=== PATIENT | male | born 1985 | race Two or more races ===

== ENCOUNTER 2025-05-13 12:34 | Inpatient (IN) | payer MEDICAID, OTHER ==
[~2025-05-13] VITALS: Ht 121.9 cm; Wt 72.0 kg
--- NOTE | 2025-05-13 13:02 | ECG ---
[facility] Test Date: 2025-05-13 Test Time: 12:53:55 Pat Name: ELIZABETH LLOYD Department: ER Room: 0216 Gender: M Sales Project Coordinator: SS : 1985 Requested By: LISA ÁLVAREZ Order Number: [id number] Reading MD: Marcelo Mccallum Measurements Intervals [place] Rate: 85 P: 39 IL: 137 QRS: -4 QRSD: 79 T: 6 QT: 382 QTc: 455 Interpretive Statements Sinus rhythm Abnormal R-wave progression, early transition LVH by voltage Electronically Signed On 05-19-2025 17:42:07 PDT by Marcelo Mccallum Please click the below link to view image of tracing.
--- NOTE | 2025-05-13 13:04 | ED.PDOC ---
GI ASSESSMENT HPI Comments 39-year-old male presents with a chief complaint of abdominal pain with associated rectal bleeding, nausea, and vomiting. Patient is Indonesian speaker only. Patient reports that his pain is localized to his periumbilical region, nonradiating, describes as sharp, and rates his pain a 8/10. Patient also reports that he has rectal bleeding and blood in his stool. Patient mentions that he drinks about 3 pints of vodka daily, last drink was this morning and also uses methamphetamine. PMHx: Denies PSHx: Denies HPI: Poor Historian. Past Medical History: Past Surgical History: REVIEW OF SYSTEMS: CONSTITUTIONAL: Denies acute: fever, diaphoresis, chills, HEAD: Denies acute: headache, photophobia Eyes: Denies acute: Double vision, vision loss, eye pain, eye discharge. EARS: Denies acute: tinnitus, hearing loss, ear discharge, ear pain, THROAT: Denies acute: sore throat, swelling, difficulty swallowing , pain with swallowing, change in voice. NECK: Denies acute: neck pain, neck swelling, stiff neck. HEART: Denies acute : chest pain, palpitations, LUNGS: Denies acute: SOB, wheezing, cough, hemoptysis ABDOMEN: Denies acute: diarrhea, melena , hematemesis, SKIN: Denies acute: rash, redness, lesions, itchiness. EXTREMITIES: Denies acute: calf pain, numbness, tingling, weakness, denies pain in extremity. Denies acute: Low back pain. Neuro: Denies acute: focal neurological deficit, motor or sensory focal neurological deficit, tremors, seizure like activity, confusion, dizziness, change in mental status, loss of bowel or bladder function, cauda equina like symptoms. : Denies acute: dysuria, hematuria, flank pain, increase in urinary frequency. PSYCH: Denies acute: hallucination, suicidal ideation, homicidal ideation. PHYSICAL EXAM: General: ----mild----acute distress, awake and alert. Head: normocephalic, atraumatic. Neck: supple, trachea is midline, no swelling. Throat: Normal phonation. Eyes:, no erythema, no purulent discharge, no proptosis, no icterus. Heart: regular rate, regular rhythm, no significant murmur appreciated. Lungs: no apparent respiratory distress, Able to speak in full sentences. No wheezing, no rhonchi, no crackles. No stridors Clear to auscultation bilaterally. Abdomen: Minimal nonspecific generalized tender to palpation, non distended, soft, no guarding, no rebound, + bowel sounds. Neuro: Awake, Alert, oriented to name, self, situation, follows commands GCS=15. Speech is normal. Skin: no petechia, no purpura, no cyanosis, non-pale, not jaundice. Lower extremities: --no - Pitting edema no deformity, no focal swelling, no calf TTP. Makes eye contact. moves all four extremities. Face: no apparent facial droop. y. Ambulating in the ED independently. ED COURSE: DISCLAIMER: This medical document was created using an electronic medical record system with voice recognition software and computerized dictation system. Although this document has been carefully reviewed, there might still be some phonetic and typographical errors. Occasional wrong-word or "sound-alike" substitutions may have occurred due to the inherent limitations of voice recognition software. These areas are purely typographical due to imperfections of the software programs and do not reflect any compromise in the patient's medical care. Please read the chart carefully and recognize, using context, where these substitutions have occurred. Chief Complaint: Withdrawal Time Seen by MD: 12:56 Reviewed Notes: Medications, Allergies Allergies: Coded Allergies: NO KNOWN ALLERGIES (Unverified , 05/13/25) Home Meds No Active Prescriptions or Reported Meds Information Source: Patient Past Medical History PAST MEDICAL HISTORY: Denies Surgical History: Denies all surgeries Family History Family History: Reviewed,noncontributory to illness Social History Smoker: Non-Smoker Alcohol: Heavy Drugs: Methamphetamine Lives In: Home Was a procedure done? Was a procedure done?: No GI differential Dx Differential Diagnosis: Other (DDX include but not limited to diverticulitis, colitis, gastroenteritis, acute abdomen, SBO, enteritis, constipation, volvulus, appendicitis, Gallbladder disease, choledocolithiasis, ascending cholangitis, pancreatitis, intraAbdominal mass/neoplasm, hepatitis, UTI, pylonephritis, kidney stone, aneurysm, dissection, Inflammatory bowel disease, gastroparesis, ischemic bowel. Diverticulitis, colitis, fistula, neoplasm, hemorrhoids, anal fissures, constipation, Crohn's disease, ulcerative colitis) X-Ray, Labs, Meds, VS Vital Signs Date Time Temp Pulse Resp B/P (MAP) Pulse Ox O2 Delivery O2 Flow Rate FiO2 05/13/25 14:23 98.3 84 16 150/80 (103) 96 98.3 05/13/25 13:35 74 19 95 Room Air* 0 21 05/13/25 13:32 98.0 90 16 148/76 (100) 96 98.0 05/13/25 13:32 90 16 98 Room Air 05/13/25 12:53 85 05/13/25 12:41 97.9 94 20 143/104 (117) 98 97.9 Lab Test 05/13/25 14:37 05/13/25 13:28 05/13/25 13:25 05/13/25 12:47 Range/Units Troponin I High Sensitivity 3 L < 3 L </=54 ng/L Urine Color Light-yellow Yellow Urine Clarity Clear Clear Urine pH 8.0 5.0-9.0 Urine Specific [place] 1.009 1.001-1.035 Urine Protein Negative Negative Urine Ketones Negative Negative Urine Blood Negative Negative /uL Urine Nitrite Negative Negative Urine Bilirubin Negative Negative Urine Urobilinogen Normal Negative mg/dL Urine Leukocyte Esterase Negative Negative /uL Urine RBC <1 0 - 3 /hpf Urine Microscopic WBC 0-3 /HPF Urine Squamous Epithelial Cells None seen <5 /hpf Urine Bacteria None seen None Seen /hpf Urine Glucose Trace Normal mg/dL Urine Opiates Screen Neg NEGATIVE Urine Fentanyl Screen Neg NEGATIVE Urine Barbiturates Screen Neg NEGATIVE Urine Phencyclidine Screen Neg NEGATIVE Urine Amphetamines Screen Neg NEGATIVE Urine Benzodiazepines Screen Neg NEGATIVE Urine Cocaine Screen Neg NEGATIVE Urine Cannabinoids Screen Neg NEGATIVE White Blood Count 3.3 L 4.4-10.8 10^3/uL Red Blood Count 4.85 4.5-5.90 10^6/uL Hemoglobin 15.2 13.5-17.5 g/dL Hematocrit 43.2 41.0-53.0 % Mean Corpuscular Volume 89.1 80.0-100.0 fL Mean Corpuscular Hemoglobin 31.4 28.0-32.0 pg Mean Corpuscular Hemoglobin Concent 35.2 32.0-36.0 g/dL Red Cell Distribution Width 12.3 11.8-14.3 % Platelet Count 168 140-450 10^3/uL Mean Platelet Volume 8.8 6.9-10.8 fL Neutrophils (%) (Auto) 51.5 37.0-80.0 % Lymphocytes (%) (Auto) 38.8 10.0-50.0 % Monocytes (%) (Auto) 7.4 0.0-12.0 % Eosinophils (%) (Auto) 0.8 0.0-7.0 % Basophils (%) (Auto) 1.5 0.0-2.0 % Neutrophils # (Auto) 1.7 1.6-8.6 10 ^3/uL Lymphocytes # (Auto) 1.3 0.4-5.4 10 ^3/uL Monocytes # (Auto) 0.2 0-1.3 10 ^3/uL Eosinophils # (Auto) 0 0-0.8 10 ^3/uL Basophils # (Auto) 0 0-0.2 10 ^3/uL Nucleated Red Blood Cells 0.0 % Prothrombin Time 11.5 9.3-11.8 sec Prothrombin Time INR 1.09 0.9-1.15 Activated Partial Thromboplast Time 29.6 24.5-34.5 SEC Sodium Level 137 136-145 mmol/L Potassium Level 3.9 3.5-5.1 mmol/L Chloride Level 101 98-107 mmol/L Carbon Dioxide Level 27 20-31 mmol/L Anion Gap 9 5-15 Blood Urea Nitrogen 7 L 9-23 mg/dL Creatinine 0.66 L 0.700-1.30 mg/dL Glomerular Filtration Rate Calc 121 >90 mL/min BUN/Creatinine Ratio 10.6 10.0-20.0 Serum Glucose 160 H 74-106 mg/dL Lactic Acid Level 1.8 0.4-2.0 mmol/L Calcium Level 9.6 8.7-10.4 mg/dL Magnesium Level 1.8 1.6-2.6 mg/dL Total Bilirubin 1.6 H 0.2-1.0 mg/dL Aspartate Amino Transferase (AST) 111 H 13-40 U/L Alanine Aminotransferase (ALT) 86 H 7-40 U/L Alkaline Phosphatase 162 H 46-116 U/L Total Protein 8.0 5.7-8.2 g/dL Albumin 4.6 3.2-4.8 g/dL Lipase 31 12-53 U/L Plasma/Serum Blood Alcohol 100.2 H <10 mg/dL POC Glucose 189 H 70-106 mg/dl Time of 1ST Reevaluation: 13:26 Reevaluation 1ST: Unchanged Patient Education/Counseling: Diagnosis, Treatment Family Education/Counseling: No Family Present Comments MDM: patient presented with the above HPI.-abdominal pain rectal bleed--workup was initiated. patient was found with the above mentioned diagnosis. the following medications were ordered: please refer to order lists of meds and tests obtained by myself Dr. Teixeira. Patient ED course and VS have been stabilized. Patient has been reassessed in the ED and remained in a stable condition. Pertinent incidental findings were discussed with the patient and/or family. Patient/family voices understanding and is agreeable with plan. Patient has been observed in the ED adequate length of time to insure improvement/stability. Escalation of care considered: Consideration of escalation to observation or admission Patient was given Thiamine, Protonix, Zofran, fluids Patient was ADMITTED to the medicine team for further evaluation and treatment of their presentation. All the reports of any imaging studies that were ordered by myself were reviewed by myself. Departure 1 Departure Time of Disposition: 13:25 Impression: Primary Impression: GI bleed Additional Impressions: Alcohol abuse Methamphetamine abuse Disposition: 09 ADMITTED INPATIENT Admit to: Tele Condition: Guarded e-Prescriptions No Active Prescriptions or Reported Meds Discharged With: Self Critical Care Note Critical Care Time?: Yes (45 min-critical care time only) I personally scribed for LISA TEIXEIRA DO ([email or web address]) on 05/13/25 at 13:04. Electro nically submitted by Solitario Tinajero ([email or web address]). LISA TEIXEIRA DO May 13, 2025 13:04
[2025-05-13] MEDS: PANTOPRAZOLE 40 MG/10 ML VIAL INJ IV ONE (13:31)
[2025-05-13] MEDS: SODIUM CHLORIDE 0.9% 1,000 ML IV ONE ×2 (13:31→18:38)
[2025-05-13] MEDS: ONDANSETRON HCL 4 MG/2 ML VIAL IV ONE (13:32)
[2025-05-13 13:35] VITALS: PULSE 74; RESP 19; O2SAT 95
[2025-05-13 13:49] LABS: Urine Protein, UAD Negative (Negative)
[2025-05-13 13:50] LABS: Hematocrit 43.2 % (41.0-53.0); Hemoglobin 15.2 g/dL (13.5-17.5); Mean Corpuscular Hemoglobin 31.4 pg (28.0-32.0); Mean Corpuscular Volume 89.1 fL (80.0-100.0); Nucleated Red Blood Cells % 0.0 %
[2025-05-13 13:59] LABS: Amphetamine Screen, Urine Neg (NEGATIVE); Barbiturate Scree,Urine Neg (NEGATIVE); Benzodiazephine Screen, Urine Neg (NEGATIVE); Cannabinoid Screen, Urine Neg (NEGATIVE); Cocaine Screen, Urine Neg (NEGATIVE); Opiate Scree,Urine Neg (NEGATIVE); Phencyclidine Screen, Urine Neg (NEGATIVE)
[2025-05-13 14:04] LABS: INR 1.09 (0.9-1.15); Partial Thromboplastin Time 29.6 SEC (24.5-34.5); Prothrombin Time 11.5 sec (9.3-11.8)
[2025-05-13 14:05] LABS: Anion Gap 9 (5-15); BUN/Creatinine Ratio 10.6 (10.0-20.0); Calcium 9.6 mg/dL (8.7-10.4); Carbon Dioxide 27 mmol/L (20-31); Chloride 101 mmol/L (98-107); Magnesium 1.8 mg/dL (1.6-2.6); Potassium 3.9 mmol/L (3.5-5.1); Sodium 137 mmol/L (136-145); Total Protein 8.0 g/dL (5.7-8.2)
[2025-05-13 14:06] LABS: Alanine Aminotransferase 86 U/L (7-40); Albumin 4.6 g/dL (3.2-4.8); Alkaline Phosphatase 162 U/L (46-116); Bilirubin, Total 1.6 mg/dL (0.2-1.0); Blood Urea Nitrogen 7 mg/dL (9-23); Glucose 160 mg/dL (74-106)
[2025-05-13 14:16] LABS: Lipase 31 U/L (12-53)
[2025-05-13] MEDS: THIAMINE HCL 100 MG TAB PO ONE (15:09)
[2025-05-13 17:23] VITALS: BP 140/87; PULSE 74; RESP 20; TEMP 98.3; O2SAT 95
[2025-05-13 17:33] VITALS: BP 140/87; PULSE 74; RESP 16; TEMP 98.3; O2SAT 95
--- NOTE | 2025-05-13 17:58 | DVHHP2 ---
History of Present Illness Reason for Visit: GI bleed History of Present Illness 39-year-old male presents for evaluation of GI bleed. Patient reports having three episodes of bloody bowel movements since today in the morning. Denies nausea or vomiting. No abdominal pain. Patient does have a history of liver cirrhosis secondary to alcohol abuse. Past Medical History Liver cirrhosis Past Surgical History Denies Family History Noncontributory Smoke: No ALCOHOL: heavy Drugs: None Lives: with Family Review of Systems Review of Systems Review of systems are currently negative otherwise addressed in HPI. Allergies: Coded Allergies: NO KNOWN ALLERGIES (Unverified , 05/13/25) Exam Vital Signs Vital Signs Date Time Temp Pulse Resp B/P (MAP) Pulse Ox O2 Delivery O2 Flow Rate FiO2 05/13/25 17:33 98.3 74 16 140/87 (104) 95 98.3 05/13/25 13:35 Room Air* 0 21 Exam Gen: 39-year-old male in mild distress Skin: Warm, dry, normal color and texture, no rash. HEENT: Normocephalic atraumatic, mucous membranes moist and pink. Neck: Cervical and supraclavicular nodes normal without enlargement, trachea is midline, thyroid gland is normal without masses. Pulmonary: Clear to auscultation and percussion bilaterally. Cardiac: Regular rate and rhythm. No murmur Abdomen: Soft, nontender, nondistended, bowel sounds present all 4 quadrants, no guarding, no rigidity, no organomegaly. Extremities: No cyanosis, clubbing, no edema Neuro: Cranial nerves II through XII grossly intact, normal affect and speech, no focal motor deficits. Labs/Xrays Labs Test 05/13/25 14:37 05/13/25 13:28 05/13/25 13:25 05/13/25 12:47 Range/Units Troponin I High Sensitivity 3 L </=54 ng/L Urine Color Light-yellow Yellow Urine Clarity Clear Clear Urine pH 8.0 5.0-9.0 Urine Specific [place] 1.009 1.001-1.035 Urine Protein Negative Negative Urine Ketones Negative Negative Urine Blood Negative Negative /uL Urine Nitrite Negative Negative Urine Bilirubin Negative Negative Urine Urobilinogen Normal Negative mg/dL Urine Leukocyte Esterase Negative Negative /uL Urine RBC <1 0 - 3 /hpf Urine Microscopic WBC 0-3 /HPF Urine Squamous Epithelial Cells None seen <5 /hpf Urine Bacteria None seen None Seen /hpf Urine Glucose Trace Normal mg/dL Urine Opiates Screen Neg NEGATIVE Urine Fentanyl Screen Neg NEGATIVE Urine Barbiturates Screen Neg NEGATIVE Urine Phencyclidine Screen Neg NEGATIVE Urine Amphetamines Screen Neg NEGATIVE Urine Benzodiazepines Screen Neg NEGATIVE Urine Cocaine Screen Neg NEGATIVE Urine Cannabinoids Screen Neg NEGATIVE White Blood Count 3.3 L 4.4-10.8 10^3/uL Red Blood Count 4.85 4.5-5.90 10^6/uL Hemoglobin 15.2 13.5-17.5 g/dL Hematocrit 43.2 41.0-53.0 % Mean Corpuscular Volume 89.1 80.0-100.0 fL Mean Corpuscular Hemoglobin 31.4 28.0-32.0 pg Mean Corpuscular Hemoglobin Concent 35.2 32.0-36.0 g/dL Red Cell Distribution Width 12.3 11.8-14.3 % Platelet Count 168 140-450 10^3/uL Mean Platelet Volume 8.8 6.9-10.8 fL Neutrophils (%) (Auto) 51.5 37.0-80.0 % Lymphocytes (%) (Auto) 38.8 10.0-50.0 % Monocytes (%) (Auto) 7.4 0.0-12.0 % Eosinophils (%) (Auto) 0.8 0.0-7.0 % Basophils (%) (Auto) 1.5 0.0-2.0 % Neutrophils # (Auto) 1.7 1.6-8.6 10 ^3/uL Lymphocytes # (Auto) 1.3 0.4-5.4 10 ^3/uL Monocytes # (Auto) 0.2 0-1.3 10 ^3/uL Eosinophils # (Auto) 0 0-0.8 10 ^3/uL Basophils # (Auto) 0 0-0.2 10 ^3/uL Nucleated Red Blood Cells 0.0 % Prothrombin Time 11.5 9.3-11.8 sec Prothrombin Time INR 1.09 0.9-1.15 Activated Partial Thromboplast Time 29.6 24.5-34.5 SEC Sodium Level 137 136-145 mmol/L Potassium Level 3.9 3.5-5.1 mmol/L Chloride Level 101 98-107 mmol/L Carbon Dioxide Level 27 20-31 mmol/L Anion Gap 9 5-15 Blood Urea Nitrogen 7 L 9-23 mg/dL Creatinine 0.66 L 0.700-1.30 mg/dL Glomerular Filtration Rate Calc 121 >90 mL/min BUN/Creatinine Ratio 10.6 10.0-20.0 Serum Glucose 160 H 74-106 mg/dL Lactic Acid Level 1.8 0.4-2.0 mmol/L Calcium Level 9.6 8.7-10.4 mg/dL Magnesium Level 1.8 1.6-2.6 mg/dL Total Bilirubin 1.6 H 0.2-1.0 mg/dL Aspartate Amino Transferase (AST) 111 H 13-40 U/L Alanine Aminotransferase (ALT) 86 H 7-40 U/L Alkaline Phosphatase 162 H 46-116 U/L Total Protein 8.0 5.7-8.2 g/dL Albumin 4.6 3.2-4.8 g/dL Lipase 31 12-53 U/L Plasma/Serum Blood Alcohol 100.2 H <10 mg/dL POC Glucose 189 H 70-106 mg/dl SEPSIS Sepsis Screen Date sepsis recognized/suspect: May 13, 2025 Time Sepsis recognized/suspect: 1240 Recent Procedure: No On Antibiotic Therapy: No Respiratory Rate >20: No Heart Rate >90: Yes Temp<36 C (96.8 F) or >38.3 C: No SBP <90 or MAP <65 mmHG: No New Acute Mental Status Change: No Is the patient on CPAP, BIPAP,: No Physician Orders Nitroglycerin Distributor (05/13/25 ) Ct Ab Pel Wo Con-No Oral Or Iv (05/13/25 12:59) Admit (05/13/25 15:20) Stool Occult Blood (05/13/25 17:53) * Gi Dvh Software Team Leader (05/13/25 17:53) NS (05/13/25 18:00) Pantoprazole (Protonix) (05/14/25 10:00) Ondansetron Hcl (Zofran) (05/13/25 18:00) Complete Blood Count (05/14/25 04:00) Comprehensive Metabolic Panel (05/14/25 04:00) Npo (Nothing By Mouth) Diet (05/13/25 Dinner) Condition: Stable (05/13/25 17:53) Bedrest With Bathroom Privileg (05/13/25 17:53) Vital Signs Date Time Temp Pulse Resp B/P (MAP) Pulse Ox O2 Delivery O2 Flow Rate FiO2 05/13/25 17:33 98.3 74 16 140/87 (104) 95 98.3 05/13/25 14:23 98.3 84 16 150/80 (103) 96 98.3 05/13/25 13:35 74 19 95 Room Air* 0 21 05/13/25 13:32 98.0 90 16 148/76 (100) 96 98.0 05/13/25 13:32 90 16 98 Room Air 05/13/25 12:53 85 05/13/25 12:41 97.9 94 20 143/104 (117) 98 97.9 Laboratory Tests Test 05/13/25 13:25 Lactic Acid Level 1.8 mmol/L (0.4-2.0) White Blood Count 3.3 10^3/uL (4.4-10.8) L Medications Medications Dose Ordered Sig/Kj Route Start Time Stop Time Status Last Admin Dose Admin Ondansetron HCl 8 mg ONCE ONCE IV 05/13/25 13:00 05/13/25 13:01 DC 05/13/25 13:32 8 MG Pantoprazole Sodium 40 mg ONCE ONCE IV 05/13/25 13:00 05/13/25 13:01 DC 05/13/25 13:31 40 MG Sodium Chloride 1,000 ml @ 1,000 mls/hr Q1H ONCE IV 05/13/25 13:00 05/13/25 13:59 DC 05/13/25 13:31 1,000 MLS/HR Thiamine HCl 100 mg ONCE ONCE PO 05/13/25 14:30 05/13/25 15:03 DC 05/13/25 15:09 100 MG Assessment/Plan Assessment/Plan Assessment ? GI bleed Liver cirrhosis Plan Admit the patient to [facility] to the hospitalist CT abdomen results pending GI consult NPO Maintenance IV fluids Continue treatment per orders. Plan discussed with: Patient My Orders Orders - RASHAAD TAPIA AGACNP Procedure Category Date Status Time Admit ADMIT 05/13/25 Transmitted 15:20 Stool Occult Blood LAB 05/13/25 Verified 17:53 * Gi Dvh Software Team Leader CONS 05/13/25 Verified 17:53 NS PHA 05/13/25 Verified 18:00 Pantoprazole PHA 05/14/25 Verified (Protonix) 10:00 Ondansetron Hcl PHA 05/13/25 Verified (Zofran) 18:00 Complete Blood Count LAB 05/14/25 Verified 04:00 Comprehensive LAB 05/14/25 Verified Metabolic Panel 04:00 Npo (Nothing By DIET 05/13/25 Verified Mouth) Diet Dinner Condition: Stable [place] 05/13/25 Verified 17:53 Bedrest With Bathroom [place] 05/13/25 Verified Privileg 17:53 Date of Service: May 13, 2025 Billing Provider: RASHAAD TPAIA Common Visit Codes: [id number] INP/OBS CARE (HIGH) RASHAAD TAPIA May 13, 2025 17:58
[2025-05-13] MEDS ORDERED: ONDANSETRON HCL 4 MG/2 ML VIAL IV PRN (18:00)
--- NOTE | 2025-05-13 19:41 | DVH ---
COMPUTERIZED TOMOGRAPHY ABDOMEN AND PELVIS WITHOUT CONTRAST REASON FOR EXAM: ETOH ABUSE, RECTAL BLEED, ABD PAIN, METH COMPARISON: None TECHNIQUE: Spiral scans were acquired from the diaphragm to the symphysis pubis without intravenous c ontrast administration. 2-D coronal and sagittal reformatted images were provided. Radiation optimiza tion: All CT scans at this facility use at least one of these dose optimization techniques: Automated exposure control mA and/or kV adjustment per patient size (includes targeted exams where dose is mat ched to clinical indication) or iterative reconstruction. RADIATION DOSE: CTDI: 10 mGy DLP: 568 mGy-cm FINDINGS: The visualized lung bases are clear. There is no pleural effusion. There is no pericardial effusion. The spleen is not enlarged. The liver is enlarged at approximately 18.3 cm in length. The liver is d iffusely hypoattenuating. Evaluation of the abdominal organs is suboptimal in the absence of intraven ous contrast. No calcified gallstone is identified. There is no pericholecystic edema. Unenhanced ap pearance of the pancreas is unremarkable. The adrenal glands are normal. The kidneys are similar in size. There is no hydronephrosis of either kidney. There is no renal, ureteral, or bladder calculus. The urinary bladder is unremarkable. The prostate and seminal vesicles are within normal limits. The re is no abdominal aortic aneurysm. There is no pathologic lymphadenopathy by size criteria. The yamilex endix is normal. There is no pathologic distention of the small bowel. There is no significant coloni c stool burden. No fluid is identified in the colon or the rectum. No acute osseous abnormality is id entified. There are degenerative changes in the lower lumbar spine. IMPRESSION: No fluid identified in the colon or rectum to suggest significant bleeding. There is no significant c olonic stool burden. Normal appendix Hypoattenuating, enlarged liver. This can be seen with steatosis or other diffuse hepatic process. C orrelate clinically and with liver function tests.
[2025-05-13 20:00] VITALS: PULSE 87; RESP 18; O2SAT 93
[2025-05-13 21:00] VITALS: BP 135/91; PULSE 81; RESP 18; TEMP 98.4; O2SAT 93
[2025-05-14] VITALS (8 sets, daily range): BP systolic 132–146; BP diastolic 90–98; PULSE 71–89; RESP 14–18; TEMP 97.7–99; O2SAT 95–98
[2025-05-14 06:46] LABS: Hematocrit 40.4 % (41.0-53.0); Hemoglobin 14.5 g/dL (13.5-17.5); Mean Corpuscular Hemoglobin 32.0 pg (28.0-32.0); Mean Corpuscular Volume 89.4 fL (80.0-100.0); Nucleated Red Blood Cells % 0.2 %
[2025-05-14 06:52] LABS: Alanine Aminotransferase 69 U/L (7-40); Albumin 4.0 g/dL (3.2-4.8); Alkaline Phosphatase 133 U/L (46-116); Anion Gap 9 (5-15); BUN/Creatinine Ratio 11.7 (10.0-20.0); Bilirubin, Total 2.3 mg/dL (0.2-1.0); Blood Urea Nitrogen 7 mg/dL (9-23); Calcium 8.8 mg/dL (8.7-10.4); Carbon Dioxide 25 mmol/L (20-31); Chloride 103 mmol/L (98-107); Glucose 118 mg/dL (74-106); Potassium 3.5 mmol/L (3.5-5.1); Sodium 137 mmol/L (136-145); Total Protein 7.2 g/dL (5.7-8.2)
[2025-05-14] MEDS: PANTOPRAZOLE 40 MG/10 ML VIAL INJ IV SCH (08:18)
[2025-05-14] MEDS: THIAMINE 100mg/ml INJ (200mg/2ml VIAL) IV ONE (10:28)
--- NOTE | 2025-05-14 10:45 | DVHPNRES ---
Progress Note Date Seen: May 14, 2025 Resident Creating Document: HUMBERTO ANSARI RESIDENT Has the PT tested + for MRSA If YES, has PT been informed?: No Medical Necessity Reason Pt with a Central, PICC or Fol: No Subjective Review of Systems This is a 39-year-old male with a history of liver cirrhosis (secondary to alcohol use) and methamphetamine abuse who presented with worsening abdominal pain with nausea and vomiting. Abdominal pain began 3 days ago and is worse today. He reports for more than 6 episodes of nonbloody vomiting since this morning, which produce the abdominal pain. He also has 3 episodes of bloody bowel movement today. The patient was diagnosis with liver cirrhosis 2 months ago presenting with rectal bleeding, black stool and difficulty urinating. Despite the diagnosis, he continued both alcohol and Methamphetamine use. Patient reports drinking vodka 5 shot daily for the past 20 years, with the last drink 2 days ago. His CIWA score is 30. He last used methamphetamine 2 days ago. He has reported living in a fdc after his left him due to his alcohol use. He expresses feeling of guilty and says he drinks upon waking. He endorses auditory hallucinations, hearing sound every night that cause head sweating. He appears disoriented to place and expresses paranoid thoughts, such as feeling that someone is following him, but no one is there. He says he feel scared and confused. Patient appears anxious and mild confused. Patient received Lorazepam for Alcohol withdrawal. Past Medical History Liver cirrhosis Past Surgical History Denies Family History Noncontributory Smoke: No ALCOHOL: heavy Drugs: Methamphetamine abuse Lives: jail Review of Systems Review of Systems Review of systems are currently negative otherwise addressed in HPI. Allergies: Coded Allergies: NO KNOWN ALLERGIES (Unverified , 05/13/25) Patient reports: No new complaints Objective vital signs Vital Sign Date Time Temp Pulse Resp B/P (MAP) Pulse Ox O2 Delivery O2 Flow Rate FiO2 05/14/25 09:00 99.0 78 18 140/97 (111) 97 99.0 05/14/25 07:39 Room Air* 0 21 Total Intake and Output 05/13/25 05/13/25 05/14/25 15:00 23:00 07:00 Intake Total 1000 ml 40 ml 960 ml Balance 1000 ml 40 ml 960 ml medications Current Medications Medications Dose Ordered Sig/Kj Route Start Time Stop Time Status Last Admin Dose Admin Pantoprazole Sodium 40 mg DAILY IV 05/14/25 10:00 05/14/25 08:18 40 MG Ondansetron HCl 4 mg Q4HP PRN IV 05/13/25 18:00 Folic Acid 1 mg/ Multivitamins 10 ml/Magnesium Sulfate 8 meq/ Thiamine HCl 100 mg/Dextrose 1,013.2 ml @ 125.001 mls/hr DAILY@1800 INJ 05/14/25 18:00 Folic Acid 1 mg DAILY PO 05/14/25 10:00 UNV Examination Exam Gen: 39-year-old male in mild distress Skin: Warm, dry, normal color and texture, no rash. HEENT: Normocephalic atraumatic, mucous membranes moist and pink. Neck: Cervical and supraclavicular nodes normal without enlargement, trachea is midline, thyroid gland is normal without masses. Pulmonary: Clear to auscultation and percussion bilaterally. Cardiac: Regular rate and rhythm. No murmur Abdomen: Right lower abdominal tenderness, rebound tenderness, Soft, nontender, nondistended, bowel sounds present all 4 quadrants, no guarding, no rigidity, no organomegaly. Extremities: Yes: Numbness in hands. No cyanosis, clubbing, no edema Neuro: Cranial nerves II through XII grossly intact, normal affect and speech, no focal motor deficits. laboratory and microbiology Laboratory Tests 05/14/25 05:18 Test 05/14/25 05:18 Range/Units Serum Glucose 118 H 74-106 mg/dL Labs and/or images reviewed: Labs reviewed by me, Image(s) reviewed by me Problem List/Assessment/Plan Problem List/Assessment/Plan # Alcohol withdrawal -continue Lorazepam (Ativan) 2mg q2h -continue Banana Bag (D5W + multivitamins, thiamine, folic acid) to prevent Wernicke's encephalopathy -continue Thiamine 100mg IV -continue Folic acid 1mg PO daily # GI bleed -continue Protonix 40 mg IV -continue Zofran 4mg IV q4h PRN -CT abdomen results pending -GI consult -NPO -Maintenance IV fluids -Continue treatment per orders # Liver cirrhosis - history of cirrhosis secondary to alcohol use -monitor for LFTs, INR. albumin and am[place] if AMS -CIWA score 30 point Plan discussed with: Patient, Other Sepsis reassessment post fluid Respiratory Effort: Non-Labored Respiratory Pattern: Regular (RN) Date of Service: May 14, 2025 Billing Provider: ALDA AVITIA MD Common Visit Codes: [id number] INP/OBS CARE(HIGH) HUMBERTO ANSARI RESIDENT May 14, 2025 10:45 ALDA AVITIA MD May 20, 2025 13:26
[2025-05-14] MEDS: LORazepam 2MG/ML-1ML VIAL IV SCH (13:50)
[2025-05-14] MEDS: FOLIC ACID 1 MG, MULTIPLE VITAMIN 10 ML, MAGNESIUM SULF SDV 50% 8 MEQ, THIAMINE INJ 100... INJ SCH (17:40)
--- NOTE | 2025-05-14 21:13 | DVHINCON2 ---
Date of service: May 14, 2025 Referring Physician Jose Manuel Loza Reason for Consultation Rectal bleeding History of Present Illness 39-year-old male presents for evaluation of GI bleed. Patient reports having three episodes of bloody bowel movements since today in the morning. Denies n ausea or vomiting. No abdominal pain. Patient does have a history of liver cirrhosis secondary to alcohol abuse. Patient was seen at bedside resting comfortably. Nurse reports a small smear of rectal bleeding today. Patient has been NPO but will be started on a clear liquid diet. There was no nausea vomiting no hematemesis. This is patient's 1st admission to this hospital. Patient's hemoglobin hematocrit is stable and stool for occult blood was negative. Patient had alcohol intoxication and admission and has moderate elevation in liver enzymes. Past Medical History Past Medical History Liver cirrhosis Past Surgical History Past Surgical History Denies Family History: Diabetes mellitus G8 MOTHER G8 FATHER Hypertension G8 FATHER Allergies: Coded Allergies: NO KNOWN ALLERGIES (Unverified , 05/13/25) Home Meds No Active Prescriptions or Reported Meds Current Medications Current Medications Medications (Trade) Dose Ordered Sig/Kj Route PRN Reason Start Time Stop Time Status Last Admin Pantoprazole Sodium (Protonix) 40 mg DAILY IV 05/14/25 10:00 05/14/25 08:18 Folic Acid 1 mg/ Multivitamins 10 ml/Magnesium Sulfate 8 meq/ Thiamine HCl 100 mg/Dextrose 1,013.2 ml @ 125.001 mls/hr DAILY@1800 INJ 05/14/25 18:00 05/14/25 17:40 Folic Acid 1 mg DAILY PO 05/15/25 10:00 Lorazepam (Ativan Inj) 1 mg Q2HR IV 05/14/25 12:00 05/14/25 16:07 Vital Signs Vital Signs Date Time Temp Pulse Resp B/P (MAP) Pulse Ox O2 Delivery O2 Flow Rate FiO2 05/14/25 17:00 98.4 81 18 133/96 (108) 96 98.4 05/14/25 07:39 Room Air* 0 21 Physical Exam Gen: 39-year-old male in no distress; sleeping comfortably at this time Skin: Warm, dry, normal color and texture, no rash. HEENT: Normocephalic atraumatic, mucous membranes moist and pink. Neck: Cervical and supraclavicular nodes normal without enlargement, trachea is midline, thyroid gland is normal without masses. Pulmonary: Clear to auscultation and percussion bilaterally. Cardiac: Regular rate and rhythm. No murmur Abdomen: Soft, nontender, nondistended, bowel sounds present all 4 quadrants, no guarding, no rigidity, no organomegaly. Extremities: No cyanosis, clubbing, no edema Neuro: Cranial nerves II through XII grossly intact, normal affect and speech, no focal motor deficits. Labs/Diagnostic Data Labs Test 05/14/25 05:18 05/13/25 18:30 05/13/25 14:37 05/13/25 13:28 Range/Units White Blood Count 4.6 # 4.4-10.8 10^3/uL Red Blood Count 4.52 4.5-5.90 10^6/uL Hemoglobin 14.5 13.5-17.5 g/dL Hematocrit 40.4 L 41.0-53.0 % Mean Corpuscular Volume 89.4 80.0-100.0 fL Mean Corpuscular Hemoglobin 32.0 28.0-32.0 pg Mean Corpuscular Hemoglobin Concent 35.8 32.0-36.0 g/dL Red Cell Distribution Width 12.4 11.8-14.3 % Platelet Count 131 L 140-450 10^3/uL Mean Platelet Volume 9.3 6.9-10.8 fL Neutrophils (%) (Auto) 53.7 37.0-80.0 % Lymphocytes (%) (Auto) 32.2 10.0-50.0 % Monocytes (%) (Auto) 8.1 0.0-12.0 % Eosinophils (%) (Auto) 4.8 0.0-7.0 % Basophils (%) (Auto) 1.2 0.0-2.0 % Neutrophils # (Auto) 2.5 1.6-8.6 10 ^3/uL Lymphocytes # (Auto) 1.5 0.4-5.4 10 ^3/uL Monocytes # (Auto) 0.4 0-1.3 10 ^3/uL Eosinophils # (Auto) 0.2 0-0.8 10 ^3/uL Basophils # (Auto) 0.1 0-0.2 10 ^3/uL Nucleated Red Blood Cells 0.2 % Sodium Level 137 136-145 mmol/L Potassium Level 3.5 3.5-5.1 mmol/L Chloride Level 103 98-107 mmol/L Carbon Dioxide Level 25 20-31 mmol/L Anion Gap 9 5-15 Blood Urea Nitrogen 7 L 9-23 mg/dL Creatinine 0.60 L 0.700-1.30 mg/dL Glomerular Filtration Rate Calc 124 >90 mL/min BUN/Creatinine Ratio 11.7 10.0-20.0 Serum Glucose 118 H 74-106 mg/dL Calcium Level 8.8 8.7-10.4 mg/dL Total Bilirubin 2.3 H 0.2-1.0 mg/dL Aspartate Amino Transferase (AST) 77 H 13-40 U/L Alanine Aminotransferase (ALT) 69 H 7-40 U/L Alkaline Phosphatase 133 H 46-116 U/L Total Protein 7.2 5.7-8.2 g/dL Albumin 4.0 3.2-4.8 g/dL Stool Occult Blood Negative Negative Stool Occult Blood Sample #3 Negative Troponin I High Sensitivity 3 L </=54 ng/L Urine Color Light-yellow Yellow Urine Clarity Clear Clear Urine pH 8.0 5.0-9.0 Urine Specific [place] 1.009 1.001-1.035 Urine Protein Negative Negative Urine Ketones Negative Negative Urine Blood Negative Negative /uL Urine Nitrite Negative Negative Urine Bilirubin Negative Negative Urine Urobilinogen Normal Negative mg/dL Urine Leukocyte Esterase Negative Negative /uL Urine RBC <1 0 - 3 /hpf Urine Microscopic WBC 0-3 /HPF Urine Squamous Epithelial Cells None seen <5 /hpf Urine Bacteria None seen None Seen /hpf Urine Glucose Trace Normal mg/dL Urine Opiates Screen Neg NEGATIVE Urine Fentanyl Screen Neg NEGATIVE Urine Barbiturates Screen Neg NEGATIVE Urine Phencyclidine Screen Neg NEGATIVE Urine Amphetamines Screen Neg NEGATIVE Urine Benzodiazepines Screen Neg NEGATIVE Urine Cocaine Screen Neg NEGATIVE Urine Cannabinoids Screen Neg NEGATIVE Test 05/13/25 13:25 05/13/25 12:47 Range/Units Prothrombin Time 11.5 9.3-11.8 sec Prothrombin Time INR 1.09 0.9-1.15 Activated Partial Thromboplast Time 29.6 24.5-34.5 SEC Lactic Acid Level 1.8 0.4-2.0 mmol/L Magnesium Level 1.8 1.6-2.6 mg/dL Lipase 31 12-53 U/L Plasma/Serum Blood Alcohol 100.2 H <10 mg/dL POC Glucose 189 H 70-106 mg/dl CT SCAN ABD PELVIS IMPRESSION: No fluid identified in the colon or rectum to suggest significant bleeding. There is no significant colonic stool burden. Normal appendix Hypoattenuating, enlarged liver. This can be seen with steatosis or other diffuse hepatic process. Correlate clinically and with liver function tests. Problems(with codes): (1) Alcoholic steatohepatitis (2) Elevated liver enzymes (3) Methamphetamine abuse (4) GI bleed (5) Alcohol abuse Plan/Recommendation Plan Continue to monitor the patient and his lab tests There was no evidence of active ongoing bleeding stool for occult blood is negative H&H is stable We will start the patient on a clear liquid diet Monitor for alcohol withdrawal and DTs Check repeat labs including ammonia level in a.m. His Maddrey discrimination function is low at 4.6 and patient does not need steroids his prognosis is good Patient can follow up with GI Services as an outpatient to discuss elective panendoscopy I will be standing by in case the patient shows signs of any active bleeding ; contact [facility] on-call over the weekend for any hemodynamic instability Plan discussed with: Patient, Other (Nurse John) DON BRAND MD May 14, 2025 21:13
[2025-05-15] VITALS (8 sets, daily range): BP systolic 122–146; BP diastolic 81–96; PULSE 76–93; RESP 16–18; TEMP 97.7–98.7; O2SAT 95–99
[2025-05-15 09:34] LABS: Albumin 4.4 g/dL (3.2-4.8); Anion Gap 13 (5-15); BUN/Creatinine Ratio 9.3 (10.0-20.0); Calcium 9.5 mg/dL (8.7-10.4); Carbon Dioxide 22 mmol/L (20-31); Chloride 101 mmol/L (98-107); Potassium 3.6 mmol/L (3.5-5.1); Sodium 136 mmol/L (136-145); Total Protein 7.7 g/dL (5.7-8.2)
[2025-05-15] MEDS: FOLIC ACID 1 MG TAB PO SCH (09:35)
[2025-05-15 09:40] LABS: Alanine Aminotransferase 79 U/L (7-40); Alkaline Phosphatase 130 U/L (46-116); Bilirubin, Total 1.5 mg/dL (0.2-1.0); Blood Urea Nitrogen 8 mg/dL (9-23); Glucose 232 mg/dL (74-106)
--- NOTE | 2025-05-15 11:54 | DVHPNRES ---
Progress Note Date Seen: May 15, 2025 Resident Creating Document: KARIME LUCAS RESIDENT Has the PT tested + for MRSA If YES, has PT been informed?: No Medical Necessity Reason Pt with a Central, PICC or Fol: No Subjective Review of Systems This is a 39-year-old male with a history of liver cirrhosis (secondary to alcohol use) and methamphetamine abuse who presented with worsening abdominal pain with nausea and vomiting. Abdominal pain began 3 days ago and is worse today. He reports for more than 6 episodes of nonbloody vomiting since this morning, which produce the abdominal pain. He also has 3 episodes of bloody bowel movement today. The patient was diagnosis with liver cirrhosis 2 months ago presenting with rectal bleeding, black stool and difficulty urinating. Despite the diagnosis, he continued both alcohol and Methamphetamine use. Patient reports drinking vodka 5 shot daily for the past 20 years, with the last drink 2 days ago. His CIWA score is 30. He last used methamphetamine 2 days ago. He has reported living in a fpc after his left him due to his alcohol use. He expresses feeling of guilty and says he drinks upon waking. He endorses auditory hallucinations, hearing sound every night that cause head sweating. He appears disoriented to place and expresses paranoid thoughts, such as feeling that someone is following him, but no one is there. He says he feel scared and confused. Patient appears anxious and mild confused. Patient received Lorazepam for Alcohol withdrawal. Patient seen at bedside. Patient appears alert x3, comfortable, patient complains of mild nausea, 6 times vomiting yesterday but denies any vomiting today, he had a bowel movement and says he saw blood. He feels anxious, is hearing voices at night and feels like something is going to attack him. He also complains of mild tingling sensation in his fingers. Patient denies any hematemesis, hemoptysis, night sweats, tremors, visual hallucinations, headaches. Today CIWA score is 8. Objective vital signs Vital Sign Date Time Temp Pulse Resp B/P (MAP) Pulse Ox O2 Delivery O2 Flow Rate FiO2 05/15/25 08:36 98.0 93 16 146/93 (110) 99 98.0 05/14/25 20:00 Room Air* 0 21 Total Intake and Output 05/14/25 05/14/25 05/15/25 15:00 23:00 07:00 Intake Total 1130 ml 200 ml Output Total 275 ml 400 ml Balance 855 ml -200 ml medications Current Medications Medications Dose Ordered Sig/Kj Route Start Time Stop Time Status Last Admin Dose Admin Pantoprazole Sodium 40 mg DAILY IV 05/14/25 10:00 05/15/25 09:35 40 MG Ondansetron HCl 4 mg Q4HP PRN IV 05/13/25 18:00 Folic Acid 1 mg/ Multivitamins 10 ml/Magnesium Sulfate 8 meq/ Thiamine HCl 100 mg/Dextrose 1,013.2 ml @ 125.001 mls/hr DAILY@1800 INJ 05/14/25 18:00 05/14/25 17:40 125.001 MLS/HR Folic Acid 1 mg DAILY PO 05/15/25 10:00 05/15/25 09:35 1 MG Lorazepam 1 mg Q2HR IV 05/14/25 12:00 05/15/25 09:42 1 MG Examination General: Patient alert and oriented in person, place and time. Patient following commands. HEENT: Normocephalic, atraumatic, moist mucous membranes Respiratory/pulmonary: Clear lungs bilaterally, vesicular murmurs present in almost all lung nassar, no associated crackles or wheezes. Cardiovascular: Normal heart sounds S1 and S2 with no associated murmurs Abdomen: Abdomen nondistended, mild pain to palpation in right upper quadrant, no palpable masses. Extremities: There is no peripheral edema present at the lower extremities. Peripheral Pulses: 3+ Radial (R). 3+ Radial (L). 3+ Dorsalis pedis (R). 3+ Dorsalis pedis(L) Skin: No rashes or pruritus, there is no sacral edema present at this time. Neurological: Intact cranial nerves with no focal neurologic deficits laboratory and microbiology Laboratory Tests 05/15/25 08:57 05/14/25 05:18 Test 05/15/25 08:57 Range/Units Serum Glucose 232 #H 74-106 mg/dL Problem List/Assessment/Plan Problem List/Assessment/Plan # Alcohol withdrawal - Blood alcohol level 100.2 -continue Lorazepam (Ativan) 2mg q2h -continue Banana Bag (D5W + multivitamins, thiamine, folic acid) to prevent Wernicke's encephalopathy -continue Thiamine 100mg IV -continue Folic acid 1mg PO daily - CIWA score is 8 - Ammonia Level- 46 - # GI bleed - continue Protonix 40 mg IV - continue Zofran 4mg IV q4h PRN - CT abdomen show No fluid identified in the colon or rectum to suggest significant bleeding. There is no significant colonic stool burden,Normal appendix, Hypoattenuating, enlarged liver. This can be seen with steatosis or other diffuse hepatic process. Correlate clinically and with liver function tests. - GI consult recomended that Patient can follow up with GI Services as an outpatient to discuss elective panendoscopy - started on clear liquid diet - Maintenance IV fluids - Continue treatment per orders - occult blood test Negative # Liver cirrhosis # Hyperbilirubinemia with Transaminitis - history of cirrhosis secondary to alcohol use -monitor for LFTs, INR. albumin and ammonia if AMS Goals of care discussed with the patient for: 27 minutes: Full code Case is discussed with Dr. Us Plan discussed with: Patient Sepsis reassessment post fluid Respiratory Effort: Non-Labored Respiratory Pattern: Regular (RN) Date of Service: May 15, 2025 Billing Provider: LOUISA US DO Common Visit Codes: [id number] INP/OBS CARE(HIGH) KARIME LUCAS RESIDENT May 15, 2025 11:54 LOUISA US DO May 17, 2025 09:45
[2025-05-15] MEDS ORDERED: LOPERAMIDE HCL 2 MG CAP/TAB PO PRN (19:00)
[2025-05-16] VITALS (8 sets, daily range): BP systolic 106–138; BP diastolic 75–97; PULSE 72–106; RESP 16–19; TEMP 97.3–98.3; O2SAT 96–99
[2025-05-16 06:22] LABS: Hematocrit 40.7 % (41.0-53.0); Hemoglobin 14.5 g/dL (13.5-17.5); Mean Corpuscular Hemoglobin 31.9 pg (28.0-32.0); Mean Corpuscular Volume 89.3 fL (80.0-100.0); Nucleated Red Blood Cells % 0.1 %
[2025-05-16 06:45] LABS: Alkaline Phosphatase 115 U/L (46-116); Anion Gap 11 (5-15); Calcium 9.4 mg/dL (8.7-10.4); Carbon Dioxide 25 mmol/L (20-31); Chloride 103 mmol/L (98-107); Sodium 139 mmol/L (136-145)
[2025-05-16 06:46] LABS: Albumin 4.2 g/dL (3.2-4.8); Bilirubin, Total 1.2 mg/dL (0.2-1.0); Glucose 111 mg/dL (74-106); Potassium 3.5 mmol/L (3.5-5.1); Total Protein 7.3 g/dL (5.7-8.2)
[2025-05-16 06:47] LABS: Alanine Aminotransferase 90 U/L (7-40); BUN/Creatinine Ratio 7.1 (10.0-20.0); Blood Urea Nitrogen < 5 mg/dL (9-23)
--- NOTE | 2025-05-16 10:21 | DVHPNRES ---
Progress Note Date Seen: May 16, 2025 Resident Creating Document: HUMEBRTO ANSARI RESIDENT Has the PT tested + for MRSA If YES, has PT been informed?: No Medical Necessity Reason Pt with a Central, PICC or Fol: No Subjective Review of Systems This is a 39-year-old male with a history of liver cirrhosis (secondary to alcohol use) and methamphetamine abuse who presented with worsening abdominal pain with nausea and vomiting. Abdominal pain began 3 days ago and is worse today. He reports for more than 6 episodes of nonbloody vomiting since this morning, which produce the abdominal pain. He also has 3 episodes of bloody bowel movement today. The patient was diagnosis with liver cirrhosis 2 months ago presenting with rectal bleeding, black stool and difficulty urinating. Despite the diagnosis, he continued both alcohol and Methamphetamine use. Patient reports drinking vodka 5 shot daily for the past 20 years, with the last drink 2 days ago. His CIWA score is 30. He last used methamphetamine 2 days ago. He has reported living in a skilled nursing after his left him due to his alcohol use. He expresses feeling of guilty and says he drinks upon waking. He endorses auditory hallucinations, hearing sound every night that cause head sweating. He appears disoriented to place and expresses paranoid thoughts, such as feeling that someone is following him, but no one is there. He says he feel scared and confused. Patient appears anxious and mild confused. Patient received Lorazepam and Librium for Alcohol withdrawal. Patient seen at bedside. Patient appears alert x3, comfortable, patient complains of mild nausea, 6 times vomiting yesterday but denies any vomiting today, he had a bowel movement and says he saw blood. He feels anxious, is hearing voices at night and feels like something is going to attack him. He also complains of mild tingling sensation in his fingers. Patient denies any hematemesis, hemoptysis, night sweats, tremors, visual hallucinations, headaches. Today CIWA score is 4. Review of Systems Constitutional: No: Fever, Chills, Sweats, Weakness, Malaise, Other Eyes: No: Pain, Vision change, Conjunctivae inflammation, Eyelid inflammation, Other, Redness ENT: No: Ear pain, Ear discharge, Nose pain, Nose discharge, Nose congestion, Mouth pain, Mouth swelling, Throat pain, Throat swelling, Other Respiratory: No: Cough, Dry, Shortness of breath, SOB with excertion, Wheezing, Hemoptysis, Pleuritic Pain, Sputum, Wheezing, Other Cardiovascular: No: Chest Pain, Palpitations, Orthopnea, Paroxysmal Noc. Dyspnea, Edema, Lt Headedness, Other Gastrointestinal: Abdominal pain; No: Nausea, Vomiting, Diarrhea, Constipation, Melena, Hematochezia, Other Genitourinary: No Dysuria, No Frequency, No Incontinence, No Hematuria, Retention; No Other Musculoskeletal: No: other, neck pain, shoulder pain, arm pain, back pain, hand pain, leg pain, foot pain Skin: No: Rash, Lesions, Jaundice, Bruising, Other Neurological: No: Weakness, Numbness, Incoordination, Change in speech, Confusion, Seizures, Other Allergies: Coded Allergies: NO KNOWN ALLERGIES (Unverified , 05/11/25) Patient reports: No new complaints (RN) Objective vital signs Vital Sign Date Time Temp Pulse Resp B/P (MAP) Pulse Ox O2 Delivery O2 Flow Rate FiO2 05/16/25 08:40 97.7 78 16 138/97 (111) 97 97.7 05/15/25 20:00 Room Air* 0 21 Total Intake and Output 05/15/25 05/15/25 05/16/25 15:00 23:00 07:00 Intake Total 1300 ml 1260 ml Output Total 1850 ml Balance 1300 ml -590 ml medications Current Medications Medications Dose Ordered Sig/Kj Route Start Time Stop Time Status Last Admin Dose Admin Pantoprazole Sodium 40 mg DAILY IV 05/14/25 10:00 05/15/25 09:35 40 MG Ondansetron HCl 4 mg Q4HP PRN IV 05/13/25 18:00 Folic Acid 1 mg/ Multivitamins 10 ml/Magnesium Sulfate 8 meq/ Thiamine HCl 100 mg/Dextrose 1,013.2 ml @ 125.001 mls/hr DAILY@1800 INJ 05/14/25 18:00 05/15/25 18:00 125.001 MLS/HR Folic Acid 1 mg DAILY PO 05/15/25 10:00 05/15/25 09:35 1 MG Lorazepam 1 mg Q2HR IV 05/14/25 12:00 05/15/25 21:05 1 MG Amlodipine Besylate 5 mg DAILY PO 05/16/25 10:00 Loperamide HCl 2 mg Q4HPRN PRN PO 05/15/25 19:00 Examination General: Patient alert and oriented in person, place and time. Patient following commands. HEENT: Normocephalic, atraumatic, moist mucous membranes Respiratory/pulmonary: Clear lungs bilaterally, vesicular murmurs present in almost all lung nassar, no associated crackles or wheezes. Cardiovascular: Normal heart sounds S1 and S2 with no associated murmurs Abdomen: Abdomen distended, mild pain to palpation in right upper quadrant, no palpable masses. Extremities: There is no peripheral edema present at the lower extremities. Peripheral Pulses: 3+ Radial (R). 3+ Radial (L). 3+ Dorsalis pedis (R). 3+ Dorsalis pedis(L) Skin: No rashes or pruritus, there is no sacral edema present at this time. Neurological: Intact cranial nerves with no focal neurologic deficits laboratory and microbiology Laboratory Tests 05/16/25 05:14 Test 05/16/25 05:14 Range/Units Serum Glucose 111 #H 74-106 mg/dL Labs and/or images reviewed: Labs reviewed by me, Image(s) reviewed by me (RN) Problem List/Assessment/Plan Problem List/Assessment/Plan # Alcohol withdrawal -continue Chlordiazepoixide HCL (Librium) 25 MG PO q8hprn -continue Lorazepam (Ativan) 2mg q2h -continue Banana Bag (D5W + multivitamins, thiamine, folic acid) to prevent Wernicke's encephalopathy -continue Thiamine 100mg IV -continue Folic acid 1mg PO daily # GI bleed -continue Protonix 40 mg IV -continue Zofran 4mg IV q4h PRN -CT abdomen- No fluid identified in the colon or rectum to suggest significant bleeding. There is no significant colonic stool burden. Normal appendix. Hypoattenuating, enlarged liver. This can be seen with steatosis or other diffuse hepatic process. Correlate clinically and with liver function tests. -GI consult -NPO > Clear liquid diet > Soft diet -Maintenance IV fluids -Continue treatment per orders # Liver cirrhosis -history of cirrhosis secondary to alcohol use -monitor for LFTs, INR. albumin and am[place] if AMS -CIWA score 30 point > 8 point > 4 point Goal of care discussed with the patient for more than 20 minutes full code Plan discussed with Dr. Us Plan discussed with: Patient, Other (RN) Sepsis reassessment post fluid Respiratory Effort: Non-Labored Respiratory Pattern: Regular (RN) Date of Service: May 16, 2025 Billing Provider: LOUISA US DO Common Visit Codes: [id number] INP/OBS CARE(HIGH) HUMBERTO ANSARI RESIDENT May 16, 2025 10:21 LOUISA US DO May 17, 2025 09:46
[2025-05-16] MEDS ORDERED: SODIUM CHLORIDE 0.9% 1,000 ML IV SCH (11:00)
[2025-05-16] MEDS: THIAMINE HCL 100 MG TAB PO ONE (18:35)
[2025-05-16] MEDS: MULTIPLE VITAMIN TAB PO ONE (18:35)
--- NOTE | 2025-05-16 23:49 | DVHPN2 ---
Progress Note - Dictate Date Seen: May 16, 2025 Has the PT tested + for MRSA If YES, has PT been informed?: No Medical Necessity Reason Pt with a Central, PICC or Fol: No Subjective No new complaints Rectal bleeding slowing down H/H stable Being treated for alcohol withdrawals vital signs Vital Sign Date Time Temp Pulse Resp B/P (MAP) Pulse Ox O2 Delivery O2 Flow Rate FiO2 05/16/25 20:46 98.2 96 18 106/81 (89) 96 98.2 05/16/25 20:00 Room Air* 0 21 Total Intake and Output 05/15/25 05/15/25 05/16/25 15:00 23:00 07:00 Intake Total 1300 ml 1260 ml Output Total 1850 ml Balance 1300 ml -590 ml medications Current Medications Medications Dose Ordered Sig/Kj Route Start Time Stop Time Status Last Admin Dose Admin Pantoprazole Sodium 40 mg DAILY IV 05/14/25 10:00 05/16/25 11:45 40 MG Ondansetron HCl 4 mg Q4HP PRN IV 05/13/25 18:00 Folic Acid 1 mg DAILY PO 05/15/25 10:00 05/16/25 11:45 1 MG Lorazepam 1 mg Q2HR IV 05/14/25 12:00 05/16/25 18:36 1 MG Amlodipine Besylate 5 mg DAILY PO 05/16/25 10:00 05/16/25 11:45 5 MG Loperamide HCl 2 mg Q4HPRN PRN PO 05/15/25 19:00 Chlordiazepoxide HCl 25 mg Q8HPRN PRN PO 05/16/25 11:15 05/16/25 21:17 25 MG Thiamine HCl 100 mg DAILY PO 05/17/25 10:00 Multivitamins 1 tab DAILY PO 05/17/25 10:00 objective Gen: 39-year-old male in no distress; sleeping comfortably at this time Skin: Warm, dry, normal color and texture, no rash. HEENT: Normocephalic atraumatic, mucous membranes moist and pink. Neck: Cervical and supraclavicular nodes normal without enlargement, trachea is midline, thyroid gland is normal without masses. Pulmonary: Clear to auscultation and percussion bilaterally. Cardiac: Regular rate and rhythm. No murmur Abdomen: Soft, nontender, nondistended, bowel sounds present all 4 quadrants, no guarding, no rigidity, no organomegaly. Extremities: No cyanosis, clubbing, no edema Neuro: Cranial nerves II through XII grossly intact, normal affect and speech, no focal motor deficits. laboratory and microbiology Laboratory Tests 05/16/25 05:14 Test 05/16/25 05:14 Range/Units Serum Glucose 111 #H 74-106 mg/dL Problems(with codes): (1) Methamphetamine abuse (2) GI bleed (3) Alcohol abuse (4) Alcoholic steatohepatitis (5) Elevated liver enzymes Prognosis Plan Continue to monitor the patient and his lab tests ; liver enzymes trending down There was no evidence of active ongoing bleeding stool for occult blood is negative H&H is stable Advance diet as tolerated Monitor for alcohol withdrawal and DTs Check repeat labs including ammonia level in a.m. His Maddrey discrimination function is low at 4.6 and patient does not need steroids his prognosis is good Patient can follow up with GI Services as an outpatient to discuss elective panendoscopy Dietary Evaluation Review Comments: 1) Encourage optimal PO intake 2) Advance to hepatic 2g Na 80g Pro diet when medically feasible 3) Follow-up with gastroenterology and hepatology 4) Follow-up with psychiatric social worker supervisor r/t polysubstance abuse 5) Continue to monitor I&O, labs, and skin integrity Expected Outcomes/Goals: 1) appetite and labs to improve 2) diet to advance 3) f/u in 3-5 days Plan discussed with: Other (None) Respiratory Effort: Non-Labored Respiratory Pattern: Regular (RN) DON BRAND MD May 16, 2025 23:49
[2025-05-17 01:02] VITALS: BP 120/81; PULSE 71; RESP 16; TEMP 98; O2SAT 97
[2025-05-17 05:00] VITALS: BP 120/81; PULSE 79; RESP 14; TEMP 98.2; O2SAT 100
[2025-05-17 05:39] LABS: Hematocrit 39.5 % (41.0-53.0); Hemoglobin 13.9 g/dL (13.5-17.5); Mean Corpuscular Hemoglobin 31.6 pg (28.0-32.0); Mean Corpuscular Volume 90.1 fL (80.0-100.0); Nucleated Red Blood Cells % 0.2 %
[2025-05-17 05:56] LABS: Alkaline Phosphatase 111 U/L (46-116); Calcium 9.6 mg/dL (8.7-10.4); Carbon Dioxide 25 mmol/L (20-31); Chloride 104 mmol/L (98-107)
[2025-05-17 05:57] LABS: Albumin 4.0 g/dL (3.2-4.8); Anion Gap 10 (5-15); BUN/Creatinine Ratio 11.0 (10.0-20.0); Bilirubin, Total 1.0 mg/dL (0.2-1.0); Potassium 3.6 mmol/L (3.5-5.1); Sodium 139 mmol/L (136-145); Total Protein 6.9 g/dL (5.7-8.2)
[2025-05-17 06:00] LABS: Alanine Aminotransferase 93 U/L (7-40); Blood Urea Nitrogen 8 mg/dL (9-23); Glucose 115 mg/dL (74-106)
[2025-05-17 08:48] VITALS: BP 127/56; PULSE 72; RESP 17; TEMP 97.8; O2SAT 96
[2025-05-17] MEDS: MULTIPLE VITAMIN TAB PO SCH (09:13)
[2025-05-17] MEDS: THIAMINE HCL 100 MG TAB PO SCH (09:13)
[2025-05-17] MEDS ORDERED: CHL25C PO (09:43)
[2025-05-17 13:20] VITALS: BP 126/83; PULSE 74; RESP 18; TEMP 97.2; O2SAT 98
--- NOTE | 2025-05-17 13:42 | DVHDSRES ---
Discharge Summary Date of Admission Resident Creating Document: HUMBERTO ANSARI RESIDENT May 13, 2025 at 15:20 Date of Discharge: May 17, 2025 Labs/Diagnostic Data: Laboratory Results Test 05/17/25 05:12 05/15/25 08:57 05/13/25 18:30 05/13/25 14:37 White Blood Count 3.9 10^3/uL (4.4-10.8) Red Blood Count 4.39 10^6/uL (4.5-5.90) Hemoglobin 13.9 g/dL (13.5-17.5) Hematocrit 39.5 % (41.0-53.0) Mean Corpuscular Volume 90.1 fL (80.0-100.0) Mean Corpuscular Hemoglobin 31.6 pg (28.0-32.0) Mean Corpuscular Hemoglobin Concent 35.1 g/dL (32.0-36.0) Red Cell Distribution Width 12.5 % (11.8-14.3) Platelet Count 110 10^3/uL (140-450) Mean Platelet Volume 9.3 fL (6.9-10.8) Neutrophils (%) (Auto) 41.4 % (37.0-80.0) Lymphocytes (%) (Auto) 38.8 % (10.0-50.0) Monocytes (%) (Auto) 10.9 % (0.0-12.0) Eosinophils (%) (Auto) 7.9 % (0.0-7.0) Basophils (%) (Auto) 1.0 % (0.0-2.0) Neutrophils # (Auto) 1.6 10 ^3/uL (1.6-8.6) Lymphocytes # (Auto) 1.5 10 ^3/uL (0.4-5.4) Monocytes # (Auto) 0.4 10 ^3/uL (0-1.3) Eosinophils # (Auto) 0.3 10 ^3/uL (0-0.8) Basophils # (Auto) 0 10 ^3/uL (0-0.2) Nucleated Red Blood Cells 0.2 % Sodium Level 139 mmol/L (136-145) Potassium Level 3.6 mmol/L (3.5-5.1) Chloride Level 104 mmol/L (98-107) Carbon Dioxide Level 25 mmol/L (20-31) Anion Gap 10 (5-15) Blood Urea Nitrogen 8 mg/dL (9-23) Creatinine 0.73 mg/dL (0.700-1.30) Glomerular Filtration Rate Calc 117 mL/min (>90) BUN/Creatinine Ratio 11.0 (10.0-20.0) Serum Glucose 115 mg/dL (74-106) Calcium Level 9.6 mg/dL (8.7-10.4) Total Bilirubin 1.0 mg/dL (0.2-1.0) Aspartate Amino Transferase (AST) 88 U/L (13-40) Alanine Aminotransferase (ALT) 93 U/L (7-40) Alkaline Phosphatase 111 U/L (46-116) Total Protein 6.9 g/dL (5.7-8.2) Albumin 4.0 g/dL (3.2-4.8) Ammonia 46 umol/L (11-32) Stool Occult Blood Negative (Negative) Stool Occult Blood Sample #3 (Negative) Troponin I High Sensitivity 3 ng/L (</=54) Test 05/13/25 13:28 05/13/25 13:25 05/13/25 12:47 Urine Color Light-yellow (Yellow) Urine Clarity Clear (Clear) Urine pH 8.0 (5.0-9.0) Urine Specific [place] 1.009 (1.001-1.035) Urine Protein Negative (Negative) Urine Ketones Negative (Negative) Urine Blood Negative /uL (Negative) Urine Nitrite Negative (Negative) Urine Bilirubin Negative (Negative) Urine Urobilinogen Normal mg/dL (Negative) Urine Leukocyte Esterase Negative /uL (Negative) Urine RBC <1 /hpf (0 - 3) Urine Microscopic WBC /HPF (0-3) Urine Squamous Epithelial Cells None seen /hpf (<5) Urine Bacteria None seen /hpf (None Seen) Urine Glucose Trace mg/dL (Normal) Urine Opiates Screen Neg (NEGATIVE) Urine Fentanyl Screen Neg (NEGATIVE) Urine Barbiturates Screen Neg (NEGATIVE) Urine Phencyclidine Screen Neg (NEGATIVE) Urine Amphetamines Screen Neg (NEGATIVE) Urine Benzodiazepines Screen Neg (NEGATIVE) Urine Cocaine Screen Neg (NEGATIVE) Urine Cannabinoids Screen Neg (NEGATIVE) Prothrombin Time 11.5 sec (9.3-11.8) Prothrombin Time INR 1.09 (0.9-1.15) Activated Partial Thromboplast Time 29.6 SEC (24.5-34.5) Lactic Acid Level 1.8 mmol/L (0.4-2.0) Magnesium Level 1.8 mg/dL (1.6-2.6) Lipase 31 U/L (12-53) Plasma/Serum Blood Alcohol 100.2 mg/dL (<10) POC Glucose 189 mg/dl (70-106) Other Laboratory Tests 05/17/25 05:12 Brief Hx & Hospital Course: HISTORY OF PRESENT ILLNESS: This is a 39-year-old male with a history of liver cirrhosis (secondary to alcohol use) and methamphetamine abuse who presented with worsening abdominal pain with nausea and vomiting. Abdominal pain began 3 days ago and is worse today. He reports for more than 6 episodes of nonbloody vomiting since this morning, which produce the abdominal pain. He also has 3 episodes of bloody bowel movement today. The patient was diagnosis with liver cirrhosis 2 months ago presenting with rectal bleeding, black stool and difficulty urinating. Despite the diagnosis, he continued both alcohol and Methamphetamine use. Patient reports drinking vodka 5 shot daily for the past 20 years, with the last drink 2 days ago. His CIWA score is 30. He last used methamphetamine 2 days ago. He has reported living in a longterm after his left him due to his alcohol use. He expresses feeling of guilty and says he drinks upon waking. He endorses auditory hallucinations, hearing sound every night that cause head sweating. He appears disoriented to place and expresses paranoid thoughts, such as feeling that someone is following him, but no one is there. He says he feel scared and confused. Patient appears anxious and mild confused. Patient received Lorazepam for Alcohol withdrawal HOSPITAL COURSE: The patient was admitted at the line of alcohol withdrawal, patient was given lorazepam 1 mg p.r.n. q.2 hours, thiamine, multivitamin, folic acid, Protonix and ondansetron. Due to high blood pressure, the patient was given amlodipine. The patient's clinical status gradually improved, and lorazepam PRN was shifted to chlordiazepoxide 20 mg q.6 hours p.o.. On 05/14/2025, the patient was feeling better since admission, CIWA score was 2. Discharge plan discussed with the patient and the patient discharged home. DISCHARGE PLAN: Follow up with the PCP within 1 week of the discharge. Follow up with the discharge Clinic within 1 week of discharge Follow up with the GI on outpatient basis Restless were provided for the patient's placement Patient was consulted for alcohol cessation DISCHARGE DIAGNOSIS: Alcohol withdrawal, CIWA score 30 Alcohol use disorder Amphetamine use disorder Morbid obesity ? Liver cirrhosis, likely due to alcohol use disorder Transaminitis, likely due to above Alcoholic steatohepatitis ? GI bleeding, unspecified location Condition at Discharge: Good Final Diagnosis/Problems List Alcohol withdrawal Discharge Disposition: Home Discharge Instruct/Medications Diet: Regular Activity: No Restrictions, As Tolerated Follow Up/Referral: Follow with the PCP within 1 week after discharge. Follow up with GI on outpatient basis Scheduled Chlordiazepoxide Hcl (Librium), 25 MG PO UD Scheduled PRN Hydrocortisone (Topical) (Preparation H), 1 % EX BID PRN Discharge Statement: "Patient was advised to return to the ER or call 911 if any headaches, dizziness, shortness of breath, chest pain, abdominal pain, bleeding, fevers, or worsening of medical condition. Patient was counseled about treatment plan, medications, possible side effects, patientverbalized understanding. All questions were answered to the best of my ability. This discharge took greater then 30 minutes in planning, reviewing documentation, counseling the patient, and discussing with other team members." ASSESSMENT ASSESSMENT Assessment Alcohol withdrawal Date of Service: May 17, 2025 Billing Provider: ALDA AVITIA MD Common Visit Codes: 56601-COD/OBS DISCH DAY >30min ZULY MATTHEW RESDIENT May 17, 2025 13:42 ALDA AVITIA MD May 20, 2025 13:37
[2025-05-17 16:49] VITALS: BP 114/80; PULSE 79; RESP 19; TEMP 98.2; O2SAT 97
== END 2025-05-17 17:49 | disposition home or self-care (01) | DRG 242 ==
LOC: ER 12:34 → OVERFLOW 15:20 → CENTRAL 17:22
PROVIDERS: ADMIT Student in an Organized Health Care Education/Training Program; ATTEND Student in an Organized Health Care Education/Training Program
DX: K22.6 Gastro-esophageal laceration-hemorrhage syndrome (principal); E72.20 Disorder of urea cycle metabolism, unspecified; K70.30 Alcoholic cirrhosis of liver without ascites; E66.01 Morbid (severe) obesity due to excess calories; E80.6 Other disorders of bilirubin metabolism; F10.139 Alcohol abuse with withdrawal, unspecified; F15.10 Other stimulant abuse, uncomplicated; R74.01 Elevation of levels of liver transaminase levels; F10.129 Alcohol abuse with intoxication, unspecified; Z79.899 Other long term (current) drug therapy; Z68.42 Body mass index [BMI] 45.0-49.9, adult; Z82.49 Family history of ischemic heart disease and other diseases of the circulatory system; Z83.3 Family history of diabetes mellitus; Y90.5 Blood alcohol level of 100-119 mg/100 ml
CPT/HCPCS: 36415; 74176; 80053; 80307; 80320; 81001; 82140; 82270; 82962; 83605; 83690; 83735; 84484; 85025; 85610; 85730; 86850; 86900; 86901; 93005; 96374; 96375; G0378; J2405; J2470

== ENCOUNTER 2025-05-18 22:14 | Emergency (ER) | payer MEDICAID ==
[~2025-05-18] VITALS: Ht 152.4 cm; Wt 68.0 kg
[2025-05-18 22:14] VITALS: BP 140/97; PULSE 78; RESP 18; TEMP 97.5; O2SAT 97
[~2025-05-18 22:14] MED LIST: CHL25C PO
[2025-05-19] MEDS ORDERED: HYDR-5192 EX (01:27)
--- NOTE | 2025-05-19 01:27 | ED.PDOC ---
General HPI Comments Patient complaining of rectal pain pain in his scrotum. States he was seen yesterday, sent home after being discharged with alcohol withdrawals and bloody diarrhea. States when he wipes his rectum is very tender. States no blood in his stool today. Only blood with wiping. Does not remember the name/medication that the nurse applied prior to his discharge. Chief Complaint: Rectal Pain Time Seen by MD: 22:33 Primary Care Provider: NONE Reviewed notes: Nurses Notes Allergies: Coded Allergies: NO KNOWN ALLERGIES (Unverified , 05/13/25) Home Meds Active Scripts Chlordiazepoxide Hcl (Librium) 25 Mg Cp, 25 MG PO UD for 2 Days, #3 CAP take 1 tablet twice daily for 1 day, followed by 1 tablet daily for 1 day Prov:ALDA AVITIA MD 05/17/25 Information Source: Patient Mode of Arrival: Ambulatory Severity: Mild Past Medical History PAST MEDICAL HISTORY: Denies Surgical History: Denies all surgeries Family History Family History: Reviewed,noncontributory to illness Social History Smoker: Non-Smoker Alcohol: Heavy Drugs: Methamphetamine Lives In: Home Constitutional: denies: chills, diaphoresis, fatigue, fever, malaise, sweats, weakness, others EENTM: denies: blurred vision, double vision, ear bleeding, ear discharge, ear drainage, ear pain, ear ringing, eye pain, eye redness, hearing loss, mouth pain, mouth swelling, nasal discharge, nose bleeding, nose congestion, nose pain, photophobia, tearing, throat pain, throat swelling, voice changes, others Respiratory: denies: cough, hemoptysis, orthopnea, SOB at rest, shortness of breath, SOB with excertion, stridor, wheezing, others Cardiovascular: denies: chest pain, dizzy spells, diaphoresis, Dyspnea on exertion, edema, irregular heart beat, left arm pain, lightheadedness, palpitations, PND, syncope, others Gastrointestinal: denies: abdomen distended, abdominal pain, blood streaked bowels, constipated, diarrhea, dysphagia, difficulty swallowing, hematemesis, melena, nausea, poor appetite, poor fluid intake, rectal bleeding, rectal pain, vomiting, others Genitourinary: denies: burning, dysuria, flank pain, frequency, hematuria, incontinence, penile discharge, penile sore, pain, testicle pain, testicle swelling, urgency, others Neurological: denies: dizziness, fainting, headache, left sided numbness, left sided weakness, numbness, paresthesia, pre-existing deficit, right sided numbness, right sided weakness, seizure, speech problems, tingling, tremors, weakness, others Musculoskeletal: denies: back pain, gout, joint pain, joint swelling, muscle pain, muscle stiffness, neck pain, others Integumetry: denies: bruises, change in color, change in hair/nails, dryness, laceration, lesions, lumps, rash, wounds, others Allergic/Immunocompromised: denies: Difficulty Healing, Frequent Infections, Hives, Itching, others Hematologic/Lymphatic: denies: anemia, blood clots, easy bleeding, easy bruising, swollen glands, others Physical Exam General Appearance: No Apparent Distress, Normal HEENT: Normal ENT Inspection, Pharynx Normal, TMs Normal Neck: Full Range of Motion, Non-Tender, Normal, Normal Inspection Respiratory: Chest Non-Tender, Lungs Clear, No Accessory Muscle Use, No Respiratory Distress, Normal Breath Sounds Cardiovascular: No Edema, No JVD, No Murmur, No Gallop, Normal Peripheral P ulses, Regular Rate/Rhythm Breast Exam: Deferred Gastrointestinal: No Organomegaly, Non Tender, No Pulsatile Mass, Normal Bowel Sounds, Soft Genitalia: Deferred Pelvic: Deferred Rectal: Tenderness, Other (No hemorrhoids noted, there is mild erythemic noted in the surrounding tissue of the rectum) Extremities: No calf tenderness, Normal capillary refill, Normal inspection, Normal range of motion, Non-tender, No pedal edema Musculoskeletal : Apperance: Normal Neurologic: Alert, senior systems engineer II-XII nml as Tested, No Motor Deficits, Normal Affect, Normal Mood, No Sensory Deficits Cerebellar Function: Normal Reflexes: Normal Skin: Dry, Normal Color, Warm Lymphatic: No Adenopathy Was a procedure done? Was a procedure done?: No Differential Diagnosis Kidney stone (Female): N/A Urinary Problem (Male): N/A Other Differential Diagnosis Hemorrhoid: Dermatitis: X-Ray, Labs, Meds, VS Vital Signs Date Time Temp Pulse Resp B/P (MAP) Pulse Ox O2 Delivery O2 Flow Rate FiO2 05/18/25 22:14 97.5 78 18 140/97 97 97.5 X-Ray, Labs, Meds, VS Comment Imaging: X-rays and CT scans were reviewed and interpreted by this provider, imaging shows no fractures and no pathological disease. Pending radiology review. Laboratory: Labs reviewed and interpreted by this provider. No significant abnormalities noted. Patient has prior medical visits reviewed. Med reconciliation performed Vital signs reviewed Time of 1ST Reevaluation: 01:26 Reevaluation 1ST: Unchanged Patient Education/Counseling: Diagnosis, Treatment, Need For Follow Up (Follow up with PCP in the next 2-4 days. Return to emergency department if symptoms worsen.) Family Education/Counseling: Diagnosis SEPSIS Sepsis Screen Date sepsis recognized/suspect: May 18, 2025 Time Sepsis recognized/suspect: 2213 Recent Procedure: No On Antibiotic Therapy: No Respiratory Rate >20: No Heart Rate >90: No Temp<36 C (96.8 F) or >38.3 C: No SBP <90 or MAP <65 mmHG: No New Acute Mental Status Change: No Is the patient on CPAP, BIPAP,: No Vital Signs Date Time Temp Pulse Resp B/P (MAP) Pulse Ox O2 Delivery O2 Flow Rate FiO2 05/18/25 22:14 97.5 78 18 140/97 97 97.5 Departure 1 Departure Time of Disposition: 01:25 Impression: Primary Impression: Dermatitis Disposition: HOME / SELF CARE / HOMELESS Condition: Stable e-Prescriptions Hydrocortisone (Topical) (Preparation H) 1 % Cre 1 % EX BID PRN, #30 CRE Prov: FABIOLA ROCK 05/19/25 Discharged With: Self Critical Care Note Critical Care Time?: No Stability Stability form required: No Heart Score Heart Score: Heart Score Response (Comments) Value History N/A 0 EKG N/A 0 Age N/A 0 Risk Factors N/A 0 Troponin N/A 0 Total 0 FABIOLA ROCK May 19, 2025 01:27
== END 2025-05-19 01:45 | disposition home or self-care (01) ==
LOC: ER 22:14
DX: L30.9 Dermatitis, unspecified (principal); F19.90 Other psychoactive substance use, unspecified, uncomplicated; F10.10 Alcohol abuse, uncomplicated; Z79.899 Other long term (current) drug therapy; Y90.9 Presence of alcohol in blood, level not specified